=== PATIENT | male | born 1995 | race Caucasian/White ===

== ENCOUNTER 2019-10-02 11:32 | Emergency (ER) | payer OTHER ==
[2019-10-02 11:54] VITALS: BP 136/72
--- NOTE | 2019-10-02 12:00 | UC ---
Upper Extremity HPI - HPI Summary HPI Summary: 23 year old male presents with right hand pain after punching a wall last night. States he was drinking alcohol and punched the wall for no specific reason. [place] pain in his right hand immediately, left a hole in the wall. Has not taken anything for pain. - History of Current Complaint Chief Complaint: UCUpperExtremity Stated Complaint: RT HAND INJURY Time Seen by Provider: 10/02/19 11:52 Hx Obtained From: Patient Onset/Duration: Sudden Onset Pain Intensity: 0 - Allergies/Home Medications Allergies/Adverse Reactions: Allergies Allergy/AdvReac Type Severity Reaction Status Date / Time No Known Allergies Allergy Verified 10/02/19 11:50 Home Medications: Home Medications NK [No Home Medications Reported] 10/02/19 [History Confirmed 10/02/19] PMH/Surg Hx/FS Hx/Imm Hx Previously Healthy: Yes - Surgical History Surgical History: None - Family History Known Family History: Positive: Non-Contributory - Social History Alcohol Use: Occasionally Substance Use Type: None Smoking Status (MU): Never Smoked Tobacco Review of Systems All Other Systems Reviewed And Are Negative: Yes Constitutional: Positive: Negative Skin: Positive: Other - redness, swelling of right hand Eyes: Positive: Negative ENT: Positive: Negative Respiratory: Positive: Negative Cardiovascular: Positive: Negative Genitourinary: Positive: Negative Neurovascular: Positive: Negative Musculoskeletal: Positive: Decreased ROM - right hand secondary to pain, Edema - dorsum of hand, Other: - tender right hand Neurological: Positive: Negative Psychological: Positive: Negative Is Patient Immunocompromised?: No Physical Exam Triage Information Reviewed: Yes Appearance: Well-Appearing Vital Signs: Initial Vital Signs Temp 98.8 F 10/02/19 11:51 Pulse 92 10/02/19 11:51 Resp 16 10/02/19 11:51 BP 136/72 10/02/19 11:51 Pulse Ox 99 10/02/19 11:51 Eye Exam: Normal ENT: Positive: Normal ENT inspection Neck: Positive: Supple, Nontender Respiratory: Positive: Chest non-tender, Lungs clear, Normal breath sounds Cardiovascular: Positive: RRR, No Murmur Abdomen Description: Positive: Nontender, Soft Musculoskeletal: Positive: ROM Limited @ - right 3rd-5th metacarpal. Capillary refill brisk and sensation intact all digits. Erythema, tenderness and swelling of right 3rd-5th distal metacarpals. Neurological: Positive: Alert, Muscle Tone Normal Psychological Exam: Normal Skin: Positive: Rashes - erythema dorsum of right hand Diagnostics - Radiology No standard instances Radiology Interpretation Completed By: Radiologist Summary of Radiographic Findings: Lube Technician: Luther Rincon Daniel, ( [id number]) Welfare Aide: ELIZA (BRANDYANCE) Report Date: 10/02/2019 12:04: 00 Report Status: Final Start of Report Content Patient Name: VINCE CHARLES Medical Record#: [id number] Ordering Physician: Alan Blue MD Acct.#: [id number] : 1995 Age: 23 Sex: M Location: [facility] [place] Exam Date: 10/02/19 1204 ADM Status: [facility] ER Order Information: HAND - RIGHT MINIMUM 3 VIEWS Accession Number: [id number] CPT: 50052 HISTORY: swelling/pain distal 3-4th distal metacarpals . COMPARISONS: None relevant available at the time of dictation. VIEWS: 4, Frontal, lateral, and oblique views of the right hand FINDINGS: BONE DENSITY: Normal. BONES: There is no displaced fracture. JOINTS: There is no arthropathy. ALIGNMENT: There is no dislocation. SOFT TISSUES: Unremarkable. OTHER FINDINGS: None. IMPRESSION: NO ACUTE OSSEOUS INJURY. IF SYMPTOMS PERSIST, RECOMMEND REPEAT IMAGING. <Electronically signed by Luther Rincon MD in OV> 10/02/191228 Dictated By: Luther Rincon MD Dictated Date/Time: 10/02/191228 Transcribed Date/Time: 10/02/191228 Copy to: CC:No Primary Care Phys,NOPCP ; Alan Blue MD Imaging - [facility] Imaging - [facility] Imaging - [facility] [address] [place], [place] [id number] [place] [id number] [place] [id number] ph [phone]) ph ([phone]) ph ([phone]) End of Report Content Upper Extremity Course/Dx - Differential Dx/Diagnosis Differential Diagnosis/HQI/PQRI: Sprain Provider Diagnosis: Contusion of right hand, initial encounter Discharge ED - Sign-Out/Discharge Documenting (check all that apply): Patient Departure All imaging exams completed and their final reports reviewed: Yes - Discharge Plan Condition: Stable Disposition: HOME Referrals: No Primary Care Phys,NOPCP [Primary Care Provider] - Additional Instructions: Wrap, ice and elevate right hand. Take Ibuprofen or Tylenol over the counter for pain. Follow-up at Urgent Care or your primary care physician if your symptoms persist or worsen. - Billing Disposition and Condition Condition: STABLE Disposition: Home
== END 2019-10-02 13:00 | disposition home or self-care (01) ==
LOC: UCCORT 11:32
DX: S60.221A Contusion of right hand, initial encounter (principal); W22.01XA Walked into wall, initial encounter; Y92.9 Unspecified place or not applicable
CPT/HCPCS: 99201; G0463